=== PATIENT | female | born 1995 | race American Indian/Alaskan Native ===

== ENCOUNTER 2019-06-11 16:51 | Emergency (ER) | payer SELFPAY ==
[2019-06-11 16:56] VITALS: BP 130/91
--- NOTE | 2019-06-11 19:19 | Emergency Department Report ---
ED Extremity Problem HPI - General Chief complaint: Extremity Injury, Lower Stated complaint: RIGHT LEG PAIN Time Seen by Provider: 06/11/19 18:57 Source: patient Mode of arrival: Ambulatory Limitations: No Limitations - History of Present Illness Initial comments: This is a very pleasant 23-year-old female who presents the emergency department with a chief complaint of right lower leg pain since yesterday. Patient reports she slipped on oil fell forward and hit the mid lower leg on the anterior side. She reports that she has been having pain in the lower leg that radiates to the foot. She reports the pain is a 7 out of 10. She reports she had a previous right tib-fib fracture and repair with ORIF and states it does not feel that it is broken she has been able to walk but does have some throbbing pain. She denies any other injuries. Denies hitting her head or losing consciousness. She denies any symptoms prior to the fall such as dizziness, weakness or any other associated symptoms. She has a past medical history of asthma that is currently controlled without medication. She denies any allergies to medications. - Related Data Previous Rx's Medication Instructions Recorded Last Taken Type Ibuprofen [Motrin 600 MG tab] 600 mg PO Q8H PRN #30 tablet 06/11/19 Unknown Rx Allergies Allergy/AdvReac Type Severity Reaction Status Date / Time No Known Allergies Allergy Unverified 06/11/19 16:52 ED Review of Systems ROS: Stated complaint: RIGHT LEG PAIN Other details as noted in HPI Comment: All other systems reviewed and negative Constitutional: denies: chills, fever Eyes: denies: eye pain, eye discharge, vision change ENT: denies: ear pain, throat pain Respiratory: denies: cough, shortness of breath, wheezing Cardiovascular: denies: chest pain, palpitations Endocrine: no symptoms reported Gastrointestinal: denies: abdominal pain, nausea, diarrhea Genitourinary: denies: urgency, dysuria, discharge Musculoskeletal: as per HPI, arthralgia. denies: back pain, joint swelling Skin: denies: rash, lesions Neurological: denies: headache, weakness, paresthesias Psychiatric: denies: anxiety, depression Hematological/Lymphatic: denies: easy bleeding, easy bruising ED Past Medical Hx - Past Medical History Previous Medical History?: Yes Hx Asthma: Yes - Surgical History Past Surgical History?: Yes Additional Surgical History: screw placed in left knee. right tib/fib tx repair - Social History Smoking Status: Never Smoker Substance Use Type: None - Medications Home Medications: Home Medications Medication Instructions Recorded Confirmed Last Taken Type Ibuprofen [Motrin 600 MG tab] 600 mg PO Q8H PRN #30 tablet 06/11/19 Unknown Rx ED Physical Exam - General Limitations: No Limitations General appearance: alert, in no apparent distress - Head Head exam: Present: atraumatic, normocephalic - Eye Eye exam: Present: normal appearance, PERRL, EOMI - ENT ENT exam: Present: normal exam, normal orophraynx, mucous membranes moist, TM's normal bilaterally - Neck Neck exam: Present: normal inspection, full ROM. Absent: tenderness, meningismus - Respiratory Respiratory exam: Present: normal lung sounds bilaterally. Absent: respiratory distress, wheezes, rales, rhonchi, stridor, chest wall tenderness - Cardiovascular Cardiovascular Exam: Present: regular rate, normal rhythm. Absent: systolic murmur, diastolic murmur, rubs, gallop - GI/Abdominal GI/Abdominal exam: Present: soft, normal bowel sounds. Absent: distended, tenderness, guarding, rebound, rigid - Extremities Exam Extremities exam: Present: normal inspection, full ROM, tenderness (There is some mild tenderness to the mid anterior right lower leg. There is no ecchymosis, edema. There are normal DP and PT pulses bilaterally. There is normal full active range of motion of the ankle and knee without pain. The patient is able ambulate without difficulty.). Absent: calf tenderness - Back Exam Back exam: Present: normal inspection, full ROM. Absent: tenderness, CVA tenderness (R), CVA tenderness (L), paraspinal tenderness - Neurological Exam Neurological exam: Present: alert, oriented X3, normal gait - Psychiatric Psychiatric exam: Present: normal affect, normal mood - Skin Skin exam: Present: warm, dry, intact, normal color. Absent: rash ED Course Vital Signs 06/11/19 16:52 Temperature 98.2 F Pulse Rate 87 Respiratory 16 Rate Blood Pressure 130/91 O2 Sat by Pulse 100 Oximetry ED Medical Decision Making - Medical Decision Making Patient is nontoxic in no acute distress my suspicion for fracture is relatively low however I recommended an x-ray of the tibia and fibula to completely rule this out. Patient politely declined saying that she had somebody at her house watching her kids and she really just needed a note for work to return and politely declined the x-ray at this time. She understood that by declining an x-ray she could potentially be leaving the emergency department with a fracture in her leg that could cause chronic pain, chronic deformity or even caused her to lose her limb. She verbalized understanding that she understood the risk she was taking by leaving the emergency department decided to leave anyways. Recommended ice and anti-inflammatories and that she return to the emergency department immediately if she develops any changing or worsening symptoms or if she change her mind and would like the x-ray she could return at any time to get it. - Differential Diagnosis Fracture, strain, sprain Critical care attestation.: If time is entered above; I have spent that time in minutes in the direct care of this critically ill patient, excluding procedure time. ED Disposition Clinical Impression: Contusion of right lower leg Qualifiers: Encounter type: initial encounter Qualified Code(s): S80.11XA - Contusion of r ight lower leg, initial encounter Disposition: DC- TO HOME OR SELFCARE Is pt being admited?: No Condition: Stable Instructions: Contusion in Adults (ED) Prescriptions: Ibuprofen [Motrin 600 MG tab] 600 mg PO Q8H PRN #30 tablet PRN Reason: Pain Referrals: WM GORMAN MD [Staff Physician] - 3-5 Days Forms: Work/School Release Form(ED) Time of Disposition: 19:19
== END 2019-06-11 20:00 | disposition home or self-care (01) ==
LOC: ED 16:51
DX: S80.11XA Contusion of right lower leg, initial encounter (principal); J45.909 Unspecified asthma, uncomplicated; Z79.899 Other long term (current) drug therapy; W01.10XA Fall on same level from slipping, tripping and stumbling with subsequent striking against unspecified object, initial encounter; Y93.89 Activity, other specified; Y92.89 Other specified places as the place of occurrence of the external cause; Y99.8 Other external cause status
CPT/HCPCS: 99282

== ENCOUNTER 2019-10-26 07:47 | Emergency (ER) | payer SELFPAY ==
[2019-10-26 07:53] VITALS: BP 129/80
[2019-10-26 08:30] LABS: HCG Qualitative,Urine Negative (Negative)
--- NOTE | 2019-10-26 08:34 | Emergency Department Report ---
ED General Adult HPI - General Chief complaint: Urogenital-Female Stated complaint: ABD PAIN, BREST PAIN, NAUSEA Time Seen by Provider: 10/26/19 08:33 Source: patient Mode of arrival: Ambulatory Limitations: No Limitations - History of Present Illness Initial comments: 23-year-old -[place] female presents to the emergency room complaining of right breast pain and tenderness and states that she had in the past some drainage from the nipple. Patient states that she was told that she has fibrocystic breasts. Patient states that the pain has increased. Patient also complains of lower abdominal cramping. Patient states that she is currently on her cycle at the 6-day and usually only has cramping for the first 2 to 3 days. Patient is taking nothing for her pain. Patient reports that she did have a nipple ring in the past but has been out for 5 years. Patient has not followed up with any DIRECTOR DESIGN or breast specialist. Patient denies any family history of breast cancer. Location: chest (Several months), pelvis (6 days) Radiation: non-radiation Associated Symptoms: nausea/vomiting (No vomiting) - Related Data Previous Rx's Medication Instructions Recorded Last Taken Type Ibuprofen [Motrin 600 MG tab] 600 mg PO Q8H PRN #30 tablet 06/11/19 Unknown Rx Allergies Allergy/AdvReac Type Severity Reaction Status Date / Time No Known Allergies Allergy Unverified 06/11/19 16:52 ED Review of Systems ROS: Stated complaint: ABD PAIN, BREST PAIN, NAUSEA Other details as noted in HPI Comment: All other systems reviewed and negative ED Past Medical Hx - Past Medical History Previous Medical History?: Yes Hx Asthma: Yes - Surgical History Past Surgical History?: Yes Additional Surgical History: screw placed in left knee. right tib/fib tx repair - Social History Smoking Status: Never Smoker Substance Use Type: Marijuana - Medications Home Medications: Home Medications Medication Instructions Recorded Confirmed Last Taken Type Ibuprofen [Motrin 600 MG tab] 600 mg PO Q8H PRN #30 tablet 06/11/19 Unknown Rx ED Physical Exam - General Limitations: No Limitations General appearance: alert - Head Head exam: Present: atraumatic - Eye Eye exam: Present: normal appearance - ENT ENT exam: Present: normal exam - Neck Neck exam: Present: normal inspection, full ROM - Respiratory Respiratory exam: Present: normal lung sounds bilaterally, other (Right breast tenderness to the lateral no drainage appreciated) - Cardiovascular Cardiovascular Exam: Present: regular rate, normal rhythm. Absent: systolic murmur, diastolic murmur, rubs, gallop - GI/Abdominal GI/Abdominal exam: Present: soft. Absent: distended, tenderness, guarding - Extremities Exam Extremities exam: Present: normal inspection - Back Exam Back exam: Present: normal inspection - Neurological Exam Neurological exam: Present: alert, oriented X3, normal gait - Psychiatric Psychiatric exam: Present: normal affect, normal mood - Skin Skin exam: Present: warm, dry, intact, normal color. Absent: rash ED Course Vital Signs 10/26/19 07:51 Temperature 98.3 F Pulse Rate 80 Respiratory 16 Rate Blood Pressure 129/80 O2 Sat by Pulse 100 Oximetry ED Medical Decision Making - Medical Decision Making 23-year-old -[place] female presents to the emergency room complaining of right breast pain and tenderness and states that she had in the past some drainage from the nipple. Patient states that she was told that she has fibrocystic breasts. Patient states that the pain has increased. Patient also complains of lower abdominal cramping. Patient states that she is currently on her cycle at the 6-day and usually only has cramping for the first 2 to 3 days. Patient is taking nothing for her pain. Patient reports that she did have a nipple ring in the past but has been out for 5 years. Patient has not followed up with any DIRECTOR DESIGN or breast specialist. Patient denies any family history of breast cancer. Patient be given ibuprofen 650 mg for pain management now. I discussed with patient she needs to follow-up with DIRECTOR DESIGN and a breast specialist. Also discussed the patient she can take ibuprofen for her menstrual cramping. Patient verbalized understanding. Critical care attestation.: If time is entered above; I have spent that time in minutes in the direct care of this critically ill patient, excluding procedure time. ED Disposition Clinical Impression: Breast mass in female, Menstrual cramp Disposition: TO HOME OR SELFCARE Is pt being admited?: No Does the pt Need Aspirin: No Condition: Stable Instructions: Dysmenorrhea (ED), Breast Mass (ED) Additional Instructions: Try taking ibuprofen 600 to 800 mg every 6-8 hours as needed for pain management. It is very important for you to follow-up with an DIRECTOR DESIGN for further evaluation. Referrals: GERONIMO VALDES MD [Staff Physician] - 3-5 Days DIANE DE LUNA MD [Staff Physician] - 3-5 Days Forms: Work/School Release Form(ED)
[2019-10-26 08:35] LABS: Bacteria,Urine 1+ /HPF (Negative); Bilirubin,Urine NEG (Negative); Blood,Urine NEG (Negative); Color,Urine Yellow (Yellow); Mucus,Urine 2+ /HPF; Protein,Urine <15 mg/dL mg/dL (Negative)
[2019-10-26] MEDS ORDERED: IBUPROFEN 600 MG TAB PO ONE (08:58)
== END 2019-10-26 09:07 | disposition home or self-care (01) ==
LOC: ED 07:47
DX: N63.0 Unspecified lump in unspecified breast (principal); N94.6 Dysmenorrhea, unspecified; J45.909 Unspecified asthma, uncomplicated; F12.10 Cannabis abuse, uncomplicated; Z79.899 Other long term (current) drug therapy
CPT/HCPCS: 81001; 81025; 99283

== ENCOUNTER 2020-03-27 07:45 | Emergency (ER) | payer SELFPAY ==
[2020-03-27 08:02] VITALS: BP 131/89
--- NOTE | 2020-03-27 08:38 | Emergency Department Report ---
Minor Respiratory - HPI Chief Complaint: Dyspnea/Respdistress Stated Complaint: PRINCESS Time Seen by Provider: 03/27/20 08:20 Duration: 5 Days Pain Location: Facial, Throat, Nose Severity: mild Minor Respiratory: Yes Rhinorrhea, Yes Able to Tolerate Fluids, Yes Cough, No Sore Throat, No Ear Pain, No Sick Contacts, No Hemoptysis, No Chest Pain, No Shortness of Breath, No Fever Other History: 24-year-old -[place] female comes in with a 5-day history of nasal congestion at night with runniness during the day. Postnasal drip. Cough is worse at night. Denies fever or chills. Patient states that she has only gone to the gas station in the last 10 days. Her child does go to school. Patient is ambulatory nontoxic and [id number] on exam. She denies shortness of breath or chest pain. ED Review of Systems ROS: Stated complaint: PRINCESS Other details as noted in HPI Comment: All other systems reviewed and negative ED Past Medical Hx - Past Medical History Previous Medical History?: Yes Hx Asthma: Yes - Surgical History Past Surgical History?: Yes Additional Surgical History: screw placed in left knee. right tib/fib tx repair - Family History Family history: no significant - Social History Smoking Status: Never Smoker Substance Use Type: None - Medications Home Medications: Home Medications Medication Instructions Recorded Confirmed Last Taken Type Azithromycin [Zithromax Z-KIEL] 250 mg PO DAILY #6 tablet 03/27/20 Unknown Rx Benzonatate [Tessalon Perles] 100 mg PO Q12H PRN #20 capsule 03/27/20 Unknown Rx Cetirizine HCl [ZyrTEC] 10 mg PO DAILY #30 capsule 03/27/20 Unknown Rx Fluticasone [Flonase] 1 spray NS QDAY #1 bottle 03/27/20 Unknown Rx predniSONE [Deltasone] 20 mg PO DAILY #5 tablet 03/27/20 Unknown Rx Minor Respiratory Exam - Exam General: Vital signs noted. No distress. Alert and acting appropriately. HEENT: Yes Pharyngeal Erythema, Yes Moist Mucous Membranes, Yes Rhinorrhea, No Pharyngeal Exudates, No Conjuctival Injection, No Frontal Tenderness, No Maxillary Tenderness Ear: Neither TM Bulge, Neither TM Erythema, Neither EAC Pain, Neither EAC Discharge Neck: Yes Supple, No Adenopathy Lungs: Yes Good Air Exchange, Yes Cough, No Wheezes, No Ronchi, No Stridor, No Labored Respirations, No Retractions, No Use of Accessory Muscles, No Other Abnormal Lung Sounds Heart: Yes Regular, No Murmur Abdomen: Yes Normal Bowel Sounds, No Tenderness, No Peritoneal Signs Skin: No Rash, No Edema Neurologic: Alert and oriented, no deficits. Musculoskeletal: Unremarkable. ED Course Vital Signs 03/27/20 07:58 Temperature 98.9 F Pulse Rate 99 H Respiratory 16 Rate Blood Pressure 131/89 O2 Sat by Pulse 100 Oximetry ED Medical Decision Making - Radiology Data Radiology results: report reviewed, image reviewed NAP - Medical Decision Making XR NEG FOR INFILTRATE PT TREATED FOR URI DC HOME WITH DC POC AND PCP FOLLOW UP SHE VERBALIZES UNDERSTANDING OF DC POC Vital Signs 03/27/20 07:58 Temperature 98.9 F Pulse Rate 99 H Respiratory 16 Rate Blood Pressure 131/89 O2 Sat by Pulse 100 Oximetry - Differential Diagnosis URI/COVID Critical care attestation.: If time is entered above; I have spent that time in minutes in the direct care of this critically ill patient, excluding procedure time. ED Disposition Clinical Impression: Upper respiratory infection Disposition: DC-01 TO HOME OR SELFCARE Is pt being admited?: No Does the pt Need Aspirin: No Condition: Stable Instructions: Upper Respiratory Infection, Adult, [id number] Additional Instructions: NO SUGGESTION OF COVID ON XRAY TODAY FOLLOW UP WITH PCP FOR FOLLOW UP REFERRAL BELOW MEDS ORDERED TODAY HYDRATE WELL WITH WATER MOTRIN OR TYLENOL FOR PAIN OR FEVER Prescriptions: predniSONE [Deltasone] 20 mg PO DAILY #5 tablet Fluticasone [Flonase] 1 spray NS QDAY #1 bottle Benzonatate [Tessalon Perles] 100 mg PO Q12H PRN #20 capsule PRN Reason: Cough Azithromycin [Zithromax Z-KIEL] 250 mg PO DAILY #6 tablet Cetirizine HCl [ZyrTEC] 10 mg PO DAILY #30 capsule Referrals: JONATHAN LIGHT MD [Staff Physician] - 3-5 Days Forms: Work/School Release Form(ED) Time of Disposition: 08:36
--- NOTE | 2020-03-27 08:40 | XRay Report ---
XR chest routine 2V INDICATION / CLINICAL INFORMATION: cough. COMPARISON: None available. FINDINGS: SUPPORT DEVICES: None. HEART /PULMONARY VASCULATURE: No significant abnormality. LUNGS / PLEURA: No significant pulmonary or pleural abnormality. No pneumothorax. ADDITIONAL FINDINGS: No significant additional findings. IMPRESSION: 1. No acute findings. Signer Name: Rigoberto Fields MD Signed: 03/27/2020 8:36 AM Workstation Name: [id number]
== END 2020-03-27 08:35 | disposition home or self-care (01) ==
LOC: ED 07:45
DX: J06.9 Acute upper respiratory infection, unspecified (principal); J45.909 Unspecified asthma, uncomplicated; Z98.890 Other specified postprocedural states; Z79.899 Other long term (current) drug therapy
CPT/HCPCS: 71046

== ENCOUNTER 2020-10-10 08:12 | Emergency (ER) | payer SELFPAY ==
[2020-10-10 08:40] VITALS: BP 126/83
[2020-10-10] MEDS ORDERED: ACETAMINOPHEN 325 MG TAB PO ONE (09:42)
--- NOTE | 2020-10-10 09:48 | Emergency Department Report ---
ED Abdominal Pain HPI - General Chief Complaint: Abdominal Pain Stated Complaint: ABD PAIN Time Seen by Provider: 10/10/20 08:57 Source: patient Mode of arrival: Ambulatory Limitations: No Limitations - History of Present Illness Initial Comments: 24 year old female presents to ED with complaints of constipation and abdominal pain. Patient states that 6 days ago she started having difficulty having BM. She states she typically has BM every morning when she wakes up. She states that 4 days ago she took OTC laxative once but she states this did not help much. She states she has been straining with her BMs and only small amount of water stool passes since she has taken the laxative. She states she still feels like she is not emptying her bowels. She states what concerned her, was that this morning while trying to have an BM she started with sharp pain mainly in her lower abd and rectal area. She denies any rectal swelling, hematochezia, melena or mucus in her bowel movement. She reports nausea this morning but no vomiting. She denies any history of hemorrhoids. She denies any abdominal surgeries in the past or any kind of rectal surgeries. She denies any recent rectal intercourse. She reports urinary frequency but that is because she has been drinking lots of water. She denies any dysuria, urinary odor or urgency. He denies any vaginal symptoms. Her last menstrual cycle was about 2 weeks ago. She states that she ran out of her control about 2 weeks ago. Complaint: abdominal pain -: This morning Severity scale (0 -10): 6 - Related Data Previous Rx's Medication Instructions Recorded Last Taken Type Docusate Sodium [Colace] 100 mg PO BID #30 capsule 10/10/20 Unknown Rx Allergies Allergy/AdvReac Type Severity Reaction Status Date / Time No Known Allergies Allergy Verified 10/10/20 08:36 ED Review of Systems ROS: Stated complaint: ABD PAIN Other details as noted in HPI Comment: All other systems reviewed and negative Constitutional: denies: chills, fever Eyes: denies: eye pain, eye discharge, vision change ENT: denies: ear pain, throat pain, dental pain, hearing loss, congestion Respiratory: denies: cough, shortness of breath, SOB with exertion, SOB at rest, wheezing Gastrointestinal: abdominal pain, nausea, constipation, other (rectal pain ). denies: diarrhea, hematemesis, melena, hematochezia Genitourinary: denies: urgency, dysuria, frequency, hematuria, discharge, abnormal menses, dyspareunia Musculoskeletal: denies: back pain, joint swelling, arthralgia, myalgia Skin: denies: rash, lesions, change in color, change in hair/nails, pruritus Neurological: denies: headache, weakness, numbness, paresthesias, confusion, abnormal gait, vertigo Psychiatric: denies: anxiety, depression, auditory hallucinations, visual guerra ucinations, homicidal thoughts, suicidal thoughts Hematological/Lymphatic: denies: easy bleeding, easy bruising, swollen glands ED Past Medical Hx - Past Medical History Hx Asthma: Yes - Surgical History Additional Surgical History: screw placed in left knee. right tib/fib tx repair - Social History Smoking Status: Never Smoker Substance Use Type: None - Medications Home Medications: Home Medications Medication Instructions Recorded Confirmed Last Taken Type Docusate Sodium [Colace] 100 mg PO BID #30 capsule 10/10/20 Unknown Rx ED Physical Exam - General Limitations: No Limitations General appearance: alert, in no apparent distress - Head Head exam: Present: atraumatic, normocephalic, normal inspection - Eye Eye exam: Present: normal appearance, PERRL, EOMI Pupils: Present: normal accommodation - Neck Neck exam: Present: normal inspection, full ROM - Respiratory Respiratory exam: Present: normal lung sounds bilaterally. Absent: respiratory distress, wheezes, rales, rhonchi - Cardiovascular Cardiovascular Exam: Present: regular rate, normal rhythm, normal heart sounds - GI/Abdominal GI/Abdominal exam: Present: soft. Absent: distended, tenderness, guarding, rebound, rigid - Rectal Rectal exam: Present: normal inspection, normal rectal tone, tenderness. Absent: black stool, bloody stool, fecal impaction, hemorrhoids, mass - Neurological Exam Neurological exam: Present: alert, oriented X3, CN II-XII intact, normal gait - Psychiatric Psychiatric exam: Present: normal affect, normal mood - Skin Skin exam: Present: intact ED Course Vital Signs 10/10/20 08:39 Temperature 98.9 F Pulse Rate 99 H Respiratory 18 Rate Blood Pressure 126/83 [Right] O2 Sat by Pulse 100 Oximetry ED Medical Decision Making - Lab Data Result diagrams: 10/10/20 09:57 10/10/20 09:57 - Radiology Data Radiology results: report reviewed Patient: HARRIS WASHINGTON MR #: [id number] : 1995 Acct:[id number] Age/Sex: 24 / F ADM Date: 10/10/20 Loc: ED Attending Dr: Ordering Physician: JOHN SAM Date of Service: 10/10/20 Procedure(s): XR abdomen 1V ap Accession Number(s): [id number] cc: JOHN SAM Fluoro Time In Minutes: ABDOMEN 1 VIEW 10/10/2020 11:30 AM INDICATION / CLINICAL INFORMATION: abd pain/constipation. COMPARISON: None available. FINDINGS: TUBES / LINES: None. BOWEL GAS PATTERN: No significant abnormality. FREE AIR / EXTRALUMINAL GAS: None. ADDITIONAL FINDINGS: No significant additional findings. IMPRESSION: 1. No acute findings. Signer Name: Mayi Meeks MD Signed: 10/10/2020 12:39 PM Workstation Name: [id number] Transcribed By: DT Dictated By: Tony Meeks MD Electronically Authenticated By: Tony Meeks MD Signed Date/Time: 10/10/20 1239 DD/ 1239 TD/TT: - Medical Decision Making All labs reviewed and unremarkable. KUB shows nothing acute. Pt is currently resting comfortable. She is not in any acute distress. She is not toxic or ill appearing. She is neurologically intact. She has soft, non tender abdomen and rectal exam unremarkable. Her VS stable. Her history, exam, diagnostic testing and current condition do not suggest acute appendicitis, bowel obstruction, acute cholecystitis, severe diverticulitis, PID, tuboovarian abscess, or torsion, sepsis or other significant pathology to warrant further testing, continued ED treatment, admission or specialist evaluation at this point. Discussed all labs and imaging results with patient. Informed her that it still be related to constipation and so recommend stool softeners, high fiber diet and lots of water. Recommend close follow up with PCP and or GI specialist but she understands to return to ED if symptoms changes or worsens in anyway. Critical care attestation.: If time is entered above; I have spent that time in minutes in the direct care of this critically ill patient, excluding procedure time. ED Disposition Clinical Impression: Constipation, Abdominal pain Disposition: 01 HOME / SELF CARE / HOMELESS Is pt being admited?: No Does the pt Need Aspirin: No Condition: Stable Instructions: Constipation, Adult, [id number], Abdominal Pain, Adult, [id number], Abdominal Pain (ED) Additional Instructions: I recommend that you continue to drink lots of water, high fiber diet, and taking the colace as prescribed. I recommend avoid straining when trying to have BM. You can take tylenol and or ibuprofen for pain. Follow up with PCP and or GI specialist next week if your symptoms persist. Return to ED if your symptoms worsens or changes. Prescriptions: Docusate Sodium [Colace] 100 mg PO BID #30 capsule Referrals: JONATHAN LIGHT MD [Staff Physician] - 7-10 days [facility] [Provider Group] - 7-10 days Forms: Work/School Release Form(ED) Time of Disposition: 13:14
[2020-10-10 11:09] LABS: Alanine Aminotransferase 16 units/L (7-56); Blood Urea Nitrogen 7 mg/dL (7-17); Calcium 9.5 mg/dL (8.4-10.2); Hemolysis Index 6
[2020-10-10 11:20] LABS: BUN/Creatinine Ratio 14
[2020-10-10 11:46] LABS: Basophils % (Auto) 0.3 % (0.0-1.8); Eosinophils # (Auto) 0.1 K/mm3 (0.0-0.4); Hematocrit 38.7 % (30.3-42.9); Hemoglobin 12.4 gm/dl (10.1-14.3); Lymphocytes # (Auto) 2.8 K/mm3 (1.2-5.4); Lymphocytes % (Auto) 40.1 % (13.4-35.0); Mean Corpuscular HGB Conc 32 % (30-34); Mean Corpuscular Volume 83 fl (79-97); Monocytes # (Auto) 0.4 K/mm3 (0.0-0.8); Monocytes % (Auto) 5.6 % (0.0-7.3); Platelet Count 188 K/mm3 (140-440); Red Blood Count 4.66 M/mm3 (3.65-5.03)
--- NOTE | 2020-10-10 12:44 | XRay Report ---
ABDOMEN 1 VIEW 10/10/2020 11:30 AM INDICATION / CLINICAL INFORMATION: abd pain/constipation. COMPARISON: None available. FINDINGS: TUBES / LINES: None. BOWEL GAS PATTERN: No significant abnormality. FREE AIR / EXTRALUMINAL GAS: None. ADDITIONAL FINDINGS: No significant additional findings. IMPRESSION: 1. No acute findings. Signer Name: Mayi Meeks MD Signed: 10/10/2020 12:39 PM Workstation Name: [id number]
[2020-10-10 13:01] LABS: Bilirubin,Urine NEG (Negative); Blood,Urine NEG (Negative); Color,Urine Straw (Yellow); Protein,Urine <15 mg/dL mg/dL (Negative); Urobilinogen,Urine < 2.0 mg/dL (<2.0)
== END 2020-10-10 13:42 | disposition home or self-care (01) ==
LOC: ED 08:12
DX: K59.00 Constipation, unspecified (principal); R10.9 Unspecified abdominal pain; J45.909 Unspecified asthma, uncomplicated; Z79.899 Other long term (current) drug therapy
CPT/HCPCS: 36415; 74018; 80053; 81001; 83690; 84703; 85025; 99284

== ENCOUNTER 2021-05-21 08:36 | Emergency (ER) | payer OTHER ==
[2021-05-21 09:00] VITALS: BP 126/82
--- NOTE | 2021-05-21 09:21 | Emergency Department Report ---
- General Chief complaint: Urogenital-Female Stated complaint: BREAST PAIN Time Seen by Provider: 05/21/21 09:04 Source: patient Mode of arrival: Ambulatory Limitations: No Limitations - History of Present Illness Initial comments: Patient is a pleasant 25-year-old who comes into the ER with right breast pain. She states that she notices at certain times of the month she gets lumps and bumps in her breast. 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 Patient is on control pills. complaint: other -: Gradual, month(s) Tetanus Up to Date: yes Severity: mild Quality: aching Consistency: intermittent Worsens with: other (Certain times of the month) Context: none Associated symptoms: denies other symptoms - Related Data Previous Rx's Medication Instructions Recorded Last Taken Type Ibuprofen [Motrin] 800 mg PO Q8HR PRN #30 tablet 05/21/21 Unknown Rx Allergies Allergy/AdvReac Type Severity Reaction Status Date / Time latex Allergy Anaphylaxis Verified 05/21/21 09:00 Abscess Boil HPI - HPI Chief Complaint: Urogenital-Female Stated Complaint: BREAST PAIN Time Seen by Provider: 05/21/21 09:04 Home Medications: Previous Rx's Medication Instructions Recorded Last Taken Type Ibuprofen [Motrin] 800 mg PO Q8HR PRN #30 tablet 05/21/21 Unknown Rx Allergies/Adverse Reactions: Allergies Allergy/AdvReac Type Severity Reaction Status Date / Time latex Allergy Anaphylaxis Verified 05/21/21 09:00 ED Review of Systems ROS: Stated complaint: BREAST PAIN Other details as noted in HPI Comment: All other systems reviewed and negative ED Past Medical Hx - Past Medical History Previous Medical History?: Yes Hx Asthma: Yes - Surgical History Past Surgical History?: Yes Additional Surgical History: screw placed in left knee. right tib/fib tx repair - Family History Family history: no significant - Social History Smoking Status: Never Smoker Substance Use Type: None - Medications Home Medications: Home Medications Medication Instructions Recorded Confirmed Last Taken Type Ibuprofen [Motrin] 800 mg PO Q8HR PRN #30 tablet 05/21/21 Unknown Rx ED Physical Exam - General Limitations: No Limitations General appearance: alert, in no apparent distress - Head Head exam: Present: atraumatic, normocephalic - Eye Eye exam: Present: normal appearance - ENT ENT exam: Present: mucous membranes moist - Neck Neck exam: Present: normal inspection - Respiratory Respiratory exam: Present: normal lung sounds bilaterally. Absent: respiratory distress - Cardiovascular Cardiovascular Exam: Present: regular rate, normal rhythm. Absent: systolic murmur, diastolic murmur, rubs, gallop - GI/Abdominal GI/Abdominal exam: Present: soft, normal bowel sounds - Extremities Exam Extremities exam: Present: normal inspection - Back Exam Back exam: Present: normal inspection - Neurological Exam Neurological exam: Present: alert, oriented X3 - Psychiatric Psychiatric exam: Present: normal affect, normal mood - Skin Skin exam: Present: warm, dry, intact, normal color, other (Polycystic lumps of the right breast. Mobile, small and tender. No abscess. No nipple discharge. No skin lesions.). Absent: rash ED Course Vital Signs 05/21/21 08:56 Temperature 98.5 F Pulse Rate 79 Respiratory 14 Rate Blood Pressure 126/82 [Left] O2 Sat by Pulse 100 Oximetry ED Medical Decision Making - Medical Decision Making Patient educated on polycystic breast disease. She has been encouraged to use warm compresses and [id number] pain medications. Patient being discharged home with discharge plan of care including diet, activity, medications and follow-up. She verbalizes understanding of plan of care. Patient understands that she should see her [employer] MACHINE OPERATOR to see if changing her control would help with her symptoms. Referrals have been given. Vital Signs 05/21/21 08:56 Temperature 98.5 F Pulse Rate 79 Respiratory 14 Rate Blood Pressure 126/82 [Left] O2 Sat by Pulse 100 Oximetry - Differential Diagnosis polycystic breast Critical care attestation.: If time is entered above; I have spent that time in minutes in the direct care of this critically ill patient, excluding procedure time. ED Disposition Clinical Impression: Breast pain Disposition: 01 HOME / SELF CARE / HOMELESS Is pt being admited?: No Does the pt Need Aspirin: No Condition: Stable Instructions: Breast Tenderness Additional Instructions: Warm compresses Follow-up with [employer]INE OPERATOR, after keeping the log that we talked about. Referral has been given below Prescriptions: Ibuprofen [Motrin] 800 mg PO Q8HR PRN #30 tablet PRN Reason: Pain, Moderate (4-6) Referrals: PATTIE MONTALVO MD [Staff Physician] - 3-5 Days Forms: Work/School Release Form(ED) Time of Disposition: 09:19
== END 2021-05-21 09:35 | disposition home or self-care (01) ==
LOC: ED 08:36
DX: N64.4 Mastodynia (principal); J45.909 Unspecified asthma, uncomplicated; Z91.040 Latex allergy status; Z79.899 Other long term (current) drug therapy
CPT/HCPCS: 99282